=== PATIENT | female | born 1975 | race Caucasian/White ===

== ENCOUNTER 2017-06-04 16:45 | Emergency (ER) | payer BC ==
[~2017-06-04] VITALS: Ht 170.2 cm; Wt 117.0 kg
[~2017-06-04 16:45] MED LIST: ADVIL COLD & SINUS; ADVIL PM1 CAP OR; ADVIL200 MG PO; ALEVE220 M1 PO; ALLERGY10 M1 PO; AMOXICILLIN/CL875 MG OR; AMOXICILLIN/CL875 MG PO; AMOXICILLIN500 MG PO; ANUCORT-HC25 MG RE; AUGMENTIN875TAB OR; BACTRIM DS1 TAB PO; BACTROBAN2 % TOP; BUPROPION100 M1 PO; CIPRO XR500 MG PO; CIPRODEX1 ML AS; CIPROFLOXACN500 MG PO; COLACE100 MG PO; COLACE50 MG OR; DEPO-MEDROL80 MG/ML IM; DICLOXACILL250 MG PO; EQ IBUPROFEN200 MG PO; FLEXERIL PO; FLEXERIL5 M1 PO; FLONASE NASAL50 MCG; FLUCONAZOLE150 MG PO; FLUZONE SPLT1 M1 IM; HEMAX PO; IBUPROFEN600 MG PO; KEFLEX500 MG PO; KURIC2 % EX; LEVOTHYROXIN100 MC1 PO; LEVOTHYROXIN50 MC1 PO; LEVOTHYROXIN75 MC1 PO; LEVOTHYROXIN75 MCG PO; LEVOTHYROXIN88 MC1 PO; LOESTRIN 24 PO; LORTAB 7.57.5 MG PO; MACRODANTIN100 MG OR; MEDDOSEPAK PO; MIRALAX3350 N1 PO; NAPROSYN500 MG PO; NITROFURANTN100 M2 PO; NYSTATIN100000 M4 TOP; OBTREX DHA PO; OMEPRAZOLE20 MG PO; OMNICEF300 MG PO; POLYTRIM OU; PRENATA4 PO; PREVACID15 M3 PO; PRILOSEC20 MG PO; PRILOSEC20 MG/CAP PO; PROCTOFOAM HC10 GM RE; SUDAFED PE10 MG; SYNTHROID200 MCG OR; TOBRAMYCIN0.3 % OP; TRIAMCINOLON0.11 EX; TUBERSOL5 MG/0.1 M ID; ULTRAM50 M1 PO; ZANTAC 75 OR; ZITHROMAX250 MG PO; [UNRECOGNIZED DRUG - CODE] EX
[2017-06-04 17:48] LABS: URINE BILIRUBIN - DIPSTICK NEGATIVE (NEGATIVE); URINE BLOOD DIPSTICK NEGATIVE (NEGATIVE); URINE CLARITY CLEAR; URINE COLOR YELLOW; URINE GLUCOSE - DIPSTICK NEGATIVE (NEGATIVE); URINE KETONE NEGATIVE (NEGATIVE); URINE NITRITE - DIPSTICK NEGATIVE (Negative); URINE PROTEIN - DIPSTICK NEGATIVE (NEG-TRACE); URINE UROBILINOGEN - DIPSTICK 0.2 E.U./dL (0.2)
[2017-06-04 17:50] LABS: HEMATOCRIT 37.4 % (37.0-47.0); IMMATURE GRANULOCYTES 0.3 % (0.0-1.0); MEAN CELL VOLUME 85.8 fL CALC (80.0-100.0); MEAN CORPUSCULAR HGB 27.5 pG CALC (26.0-32.0); MEAN CORPUSCULAR HGB CONC 32.1 g/L CALC (32.0-36.0); NEUT# 5.67 thou/uL (2.00-7.15); RED BLOOD COUNT 4.36 mill/uL (4.20-5.60); RED CELL DISTRI WIDTH 14.8 % (11.5-15.5)
[2017-06-04 18:06] LABS: URINE LEUK ESTERASE SMALL (NEGATIVE)
[2017-06-04 18:07] LABS: ALBUMIN 4.6 g/dL (3.2-5.0); ALKALINE PHOSPHATASE 87 u/l (38-126); ANION GAP 18 (6-22 (CALC)); BILIRUBIN, TOTAL 0.5 mg/dL (0.0-1.4); BUN 12 mg/dL (7-17); BUN/CREATININE RATIO 14 (12-20 (CALC)); CALCIUM 9.9 mg/dL (8.4-10.2); CARBON DIOXIDE 20 mmol/l (22-30); CHLORIDE 107 mmol/l (95-108); CREATININE 0.8 mg/dL (0.5-1.0); GFR > 60 ML/MIN (>=60 (CALC)); GFR FOR AFR.AMER. > 60 ML/MIN (>=60 (CALC)); GLUCOSE 94 mg/dL (65-105); LIPASE 54 u/l (23-300); POTASSIUM 3.9 mmol/l (3.5-5.1); SGOT/AST 34 u/l (14-36); SGPT/ALT 46 u/l (9-52); SODIUM 141 mmol/l (137-146); TOTAL PROTEIN 7.6 g/dL (6.3-8.2)
[2017-06-04 18:18] LABS: URINE BACTERIA MODERATE hpf; URINE SQUAMOUS EPITHELIAL CELL FEW EPI/hpf (0-FEW)
[2017-06-04 19:17] VITALS: BP 130/86
== END 2017-06-04 19:23 | disposition home or self-care (01) | DRG 690 ==
LOC: ED 16:45
PROVIDERS: Family Medicine
DX: N39.0 Urinary tract infection, site not specified (principal); R10.9 Unspecified abdominal pain

== ENCOUNTER 2017-07-12 04:25 | Emergency (ER) | payer BC ==
[~2017-07-12] VITALS: Ht 170.2 cm; Wt 114.4 kg
[2017-07-12] MEDS ORDERED: ROBITUSSIN AC10 ML PO (04:36)
[2017-07-12] MEDS ORDERED: ALLERGY NA50 MCG/ACT (04:37)
[2017-07-12] MEDS ORDERED: AUGMENTIN875TAB PO (04:38)
[2017-07-12] MEDS ORDERED: MEDDOSEPAK PO (05:04)
[2017-07-12] MEDS ORDERED: BENADRYL 50MG C50 MG PO (05:32)
[2017-07-12] MEDS ORDERED: PEPCID20 MG PO (05:32)
[2017-07-12 06:14] VITALS: BP 112/68
== END 2017-07-12 06:12 | disposition home or self-care (01) | DRG 607 ==
LOC: ED 04:25
DX: L50.0 Allergic urticaria (principal); T36.0X5A Adverse effect of penicillins, initial encounter; Y92.009 Unspecified place in unspecified non-institutional (private) residence as the place of occurrence of the external cause

== ENCOUNTER 2017-09-28 22:04 | Emergency (ER) | payer BC ==
[~2017-09-28] VITALS: Ht 170.2 cm; Wt 116.0 kg
[~2017-09-28 22:04] MED LIST changes: +ALLERGY NA50 MCG/ACT; +AUGMENTIN875TAB PO; +BENADRYL 50MG C50 MG PO; +PEPCID20 MG PO; +ROBITUSSIN AC10 ML PO
[2017-09-28] MEDS ORDERED: NAPROSYN500 MG PO ×2 (22:16→23:10)
[2017-09-28 23:45] VITALS: BP 133/91
== END 2017-09-28 23:46 | disposition home or self-care (01) | DRG 563 ==
LOC: ED 22:04
DX: S83.92XA Sprain of unspecified site of left knee, initial encounter (principal); M79.605 Pain in left leg

== ENCOUNTER 2018-08-13 15:51 | Emergency (ER) | payer BC ==
[~2018-08-13] VITALS: Ht 170.2 cm; Wt 113.6 kg
[2018-08-13] MEDS ORDERED: LEVOTHYROXIN75 MCG PO (16:07)
[2018-08-13 16:49] LABS: URINE BLOOD DIPSTICK LARGE (NEGATIVE); URINE COLOR ORANGE; URINE GLUCOSE - DIPSTICK 250 mg/dL (NEGATIVE); URINE KETONE TRACE mg/dL (NEGATIVE); URINE PROTEIN - DIPSTICK >=300 mg/dL (NEG-TRACE); URINE SPECIFIC GRAVITY 1.025
[2018-08-13 16:53] LABS: URINE BILIRUBIN - DIPSTICK NEGATIVE (NEGATIVE); URINE LEUK ESTERASE MODERATE (NEGATIVE); URINE NITRITE - DIPSTICK POSITIVE (Negative)
[2018-08-13 17:00] LABS: URINE SQUAMOUS EPITHELIAL CELL FEW EPI/hpf (0-FEW); URINE WBC 20-50 WBC/hpf (0-5)
[2018-08-13] MEDS ORDERED: PYRIDIUM200 MG PO (17:03)
[2018-08-13] MEDS ORDERED: KEFLEX500 M1 PO (17:03)
[2018-08-13 17:06] VITALS: BP 141/89
== END 2018-08-13 17:06 | disposition home or self-care (01) | DRG 690 ==
LOC: ED 15:51
DX: N39.0 Urinary tract infection, site not specified (principal); R30.0 Dysuria; B96.20 Unspecified Escherichia coli [E. coli] as the cause of diseases classified elsewhere

== ENCOUNTER 2020-05-25 10:59 | Emergency (ER) | payer BC ==
[~2020-05-25] VITALS: Ht 170.2 cm; Wt 86.0 kg
[~2020-05-25 10:59] MED LIST changes: +KEFLEX500 M1 PO; +PYRIDIUM200 MG PO
[2020-05-25 11:51] LABS: URINE BILIRUBIN - DIPSTICK NEGATIVE (NEGATIVE); URINE BLOOD DIPSTICK NEGATIVE (NEGATIVE); URINE COLOR YELLOW; URINE GLUCOSE - DIPSTICK NEGATIVE (NEGATIVE); URINE KETONE NEGATIVE (NEGATIVE); URINE LEUK ESTERASE NEGATIVE (NEGATIVE); URINE NITRITE - DIPSTICK NEGATIVE (Negative); URINE PROTEIN - DIPSTICK NEGATIVE (NEG-TRACE); URINE UROBILINOGEN - DIPSTICK 0.2 E.U./dL (0.2)
[2020-05-25 11:53] LABS: HEMATOCRIT 33.4 % (37.0-47.0); IMMATURE GRANULOCYTES 0.5 % (0.0-5.0); MEAN CORPUSCULAR HGB 21.7 pG CALC (26.0-32.0); NEUT# 2.61 thou/uL (2.00-7.15); RED BLOOD COUNT 4.47 mill/uL (4.20-5.60); RED CELL DISTRI WIDTH 18.6 % (11.5-15.5)
[2020-05-25 11:58] LABS: HEMOGLOBIN 9.7 g/dl (12.0-16.0); MEAN CELL VOLUME 74.7 fL CALC (80.0-100.0)
[2020-05-25 12:02] LABS: URINE EPITHELIAL CELLS MANY EPI/hpf (0-FEW); URINE RBC 0-2 RBC/hpf (0-5)
[2020-05-25 12:03] LABS: URINE HYALINE CAST FEW lpf (NONE-RARE); URINE MUCUS MODERATE hpf (NONE-FEW)
[2020-05-25 12:05] LABS: ALBUMIN 4.7 g/dL (3.2-5.0); ALKALINE PHOSPHATASE 127 u/l (38-126); ANION GAP 16 (6-22 (CALC)); BILIRUBIN, TOTAL 0.5 mg/dL (0.0-1.4); BUN 6 mg/dL (7-17); BUN/CREATININE RATIO 8 (12-20 (CALC)); CARBON DIOXIDE 23 mmol/l (22-30); CHLORIDE 103 mmol/l (95-108); CREATININE 0.8 mg/dL (0.5-1.0); GFR > 60 ML/MIN (>=60 (CALC)); GFR FOR AFR.AMER. > 60 ML/MIN (>=60 (CALC)); POTASSIUM 3.9 mmol/l (3.5-5.1); SGOT/AST 62 u/l (14-36); SODIUM 138 mmol/l (137-146); TOTAL PROTEIN 8.1 g/dL (6.3-8.2)
[2020-05-25 12:19] LABS: HCG SERUM/URINE (NEG/POS) NEGATIVE (NEGATIVE)
[2020-05-25 13:50] VITALS: BP 139/70
== END 2020-05-25 13:56 | disposition home or self-care (01) | DRG 866 ==
LOC: ED 10:59
PROVIDERS: Student in an Organized Health Care Education/Training Program
DX: B34.9 Viral infection, unspecified (principal); Z20.828 Contact with and (suspected) exposure to other viral communicable diseases

== ENCOUNTER 2020-06-17 13:14 | Emergency (ER) | payer BC ==
[~2020-06-17] VITALS: Ht 170.2 cm; Wt 118.0 kg
[2020-06-17] MEDS ORDERED: AMOXICILLIN500 MG PO (13:32)
[2020-06-17] MEDS ORDERED: FLOXIN OTIC0.3 % AS (13:59)
[2020-06-17] MEDS ORDERED: MEDROL DOSEPAK4 MG PO (14:00)
[2020-06-17 14:22] VITALS: BP 169/79
== END 2020-06-17 14:22 | disposition home or self-care (01) | DRG 156 ==
LOC: ED 13:14
PROC: 3E1B78Z Irrigation of Ear using Irrigating Substance, Via Natural or Artificial Opening (ICD-10-PCS; principal; 2020-06-17)
DX: H61.22 Impacted cerumen, left ear (principal)

== ENCOUNTER 2020-12-19 | Emergency (ER) | payer BC ==
[~2020-12-19] MED LIST changes: +FLOXIN OTIC0.3 % AS; +MEDROL DOSEPAK4 MG PO
[2020-12-19 21:31] LABS: HEMATOCRIT 34.2 % (37.0-47.0); HEMOGLOBIN 10.1 g/dl (12.0-16.0); IMMATURE GRANULOCYTES 0.1 % (0.0-5.0); MEAN CELL VOLUME 78.3 fL CALC (80.0-100.0); MEAN CORPUSCULAR HGB 23.1 pG CALC (26.0-32.0); MEAN CORPUSCULAR HGB CONC 29.5 g/dL CAL (32.0-36.0); NEUT# 3.97 thou/uL (2.00-7.15); RED BLOOD COUNT 4.37 mill/uL (4.20-5.60); RED CELL DISTRI WIDTH 16.5 % (11.5-15.5)
[2020-12-19 21:44] LABS: ALBUMIN 4.5 g/dL (3.2-5.0); ALKALINE PHOSPHATASE 82 u/l (38-126); AMYLASE 59 u/l (30-110); ANION GAP 12 (6-22 (CALC)); BILIRUBIN, TOTAL 0.5 mg/dL (0.0-1.4); BUN 12 mg/dL (7-17); BUN/CREATININE RATIO 13 (12-20 (CALC)); CARBON DIOXIDE 26 mmol/l (22-30); CHLORIDE 105 mmol/l (95-108); CREATININE 0.9 mg/dL (0.5-1.0); GFR > 60 ML/MIN (>=60 (CALC)); GFR FOR AFR.AMER. > 60 ML/MIN (>=60 (CALC)); LIPASE 59 u/l (23-300); POTASSIUM 4.1 mmol/l (3.5-5.1); SGOT/AST 34 u/l (14-36); SODIUM 139 mmol/l (137-146); TOTAL PROTEIN 7.8 g/dL (6.3-8.2)
[2020-12-19 21:56] LABS: ACT PARTIAL THROMBO TIME 24.5 SECONDS (20.0-32.5); INTERNATIONAL NORMALIZED RATIO 1.1 RATIO (0.7-1.3); PROTHROMBIN TIME 10.7 SECONDS (9.0-12.5)
[2020-12-19 21:57] LABS: MYOGLOBIN 23 ng/mL (0 - 62)
[2020-12-19 22:01] LABS: D-DIMER 0.23 mg/L (0.19-0.60)
[2020-12-19 22:15] LABS: TSH, 3RD GENERATION 7.79 uIU/mL (0.47 - 4.68)
[2020-12-19 22:21] LABS: URINE BILIRUBIN - DIPSTICK NEGATIVE (NEGATIVE); URINE BLOOD DIPSTICK LARGE (NEGATIVE); URINE COLOR YELLOW; URINE GLUCOSE - DIPSTICK NEGATIVE (NEGATIVE); URINE KETONE NEGATIVE (NEGATIVE); URINE PROTEIN - DIPSTICK NEGATIVE (NEG-TRACE); URINE UROBILINOGEN - DIPSTICK 0.2 E.U./dL (0.2)
[2020-12-19 22:22] LABS: URINE LEUK ESTERASE MODERATE (NEGATIVE); URINE NITRITE - DIPSTICK NEGATIVE (Negative)
[2020-12-19 22:28] LABS: URINE BACTERIA MANY hpf; URINE RBC 50-100 RBC/hpf (0-5); URINE SQUAMOUS EPITHELIAL CELL FEW EPI/hpf (0-FEW); URINE WBC 20-50 WBC/hpf (0-5)
[2020-12-19] MEDS ORDERED: TORADOL PO (22:38)
== END 2020-12-19 22:42 | disposition home or self-care (01) | DRG 313 ==
PROVIDERS: Family Medicine
DX: R07.89 Other chest pain (principal); K21.9 Gastro-esophageal reflux disease without esophagitis

== ENCOUNTER 2024-09-15 21:47 | Emergency (ER) | payer BC ==
[~2024-09-15] VITALS: Ht 170.2 cm; Wt 122.0 kg
[~2024-09-15 21:47] MED LIST changes: +TORADOL PO
[2024-09-15] MEDS ORDERED: Acetaminophen 300 MG/Codeine 30 MG/COMBO PO ONE (22:10)
[2024-09-15] MEDS ORDERED: predniSONE 20 MG/TAB PO ONE (22:10)
[2024-09-15] MEDS ORDERED: MEDDOSEPAK PO (22:12)
[2024-09-15 22:34] VITALS: BP 198/97
== END 2024-09-15 22:40 | disposition home or self-care (01) | DRG 159 ==
LOC: ED 21:47
DX: M26.622 Arthralgia of left temporomandibular joint (principal)